=== PATIENT | female | born 1985 | race Caucasian/White ===

== ENCOUNTER 2016-11-11 22:07 | Emergency (ER) | payer BC, OTHER ==
[~2016-11-11] VITALS: Ht 180.3 cm; Wt 130.0 kg
[~2016-11-11 22:07] MED LIST: ACETAMINOPHEN PO; HYDROCODONE PO; IRON PO; LORA-441 PO; ONDANSETRON PO; OXYC-281 PO
[2016-11-11 22:16] VITALS: Ht 180.3 cm; Wt 130.0 kg
--- NOTE | 2016-11-11 22:35 | ERA ---
ER Documentation Chief Complaint Date/Time DATE: 11/11/16 TIME: 22:34 Chief Complaint palaptations since tuesday HPI The patient is a 31-year-old female, presenting to the ER because of palpitations intermittently for 3 days, left sided numbness intermittently for the last week. She was seen at [place] emergency department 3 days ago and discharged. She complains of minimal epigastric discomfort, denies fever, chills, syncope, near syncope, neck pain, chest pain, dyspnea, nausea, vomiting , diarrhea, constipation. She does not smoke, drink. She has a lot of stress in her life Past medical history: Anxiety, anemia Past surgical history: One , left ankle ROS All systems reviewed and are negative except as per history of present illness. Medications Home Meds Active Scripts Ondansetron (Ondansetron Odt) 4 Mg Tab.rapdis, 4 MG PO Q6H Y for NAUSEA AND/OR VOMITING, #10 TAB Prov:TRISTON ERWIN MD 11/12/16 Lorazepam* (Ativan*) 0.5 Mg Tablet, 0.5 MG PO Q8, #10 TAB Prov:ARTURO PAZ 06/30/16 Oxycodone Hcl-Acetaminophen* (Percocet*) 5-325 Mg Tablet, 1 TAB PO TID for PAIN LEVEL 6-10, #12 TAB Prov:JUSTIN HOANG MD 03/24/16 Reported Medications [Hydocod-Acet] No Conflict Check, 1 TAB PO Q12 Y for PAIN 09/10/14 [Iron] No Conflict Check, 1 TAB PO DAILY 09/10/14 [Ondansetron] No Conflict Check, 4 MG PO Y for NAUSEA 09/10/14 Allergies Allergies: Coded Allergies: No Known Allergy (Unverified , 09/10/14) PMhx/Soc History of Surgery: Yes ( x1, gallbladder removed, left ankle surgery) Anesthesia Reaction: No Hx Neurological Disorder: No Hx Respiratory Disorders: No Hx Cardiac Disorders: No Hx Psychiatric Problems: Yes (ANXIETY) Hx Miscellaneous Medical Probl: Yes (ANEMIA) Hx Alcohol Use: Yes (SOCIAL) Hx Substance Use: No Hx Tobacco Use: No (QUIT APRIL 2016) Smoking Status: Former smoker Physical Exam Vitals Vital Signs Date Time Temp Pulse Resp B/P Pulse Ox O2 Delivery O2 Flow Rate FiO2 11/12/16 00:05 98 18 133/74 99 11/11/16 22:55 105 18 132/83 98 11/11/16 22:21 112 18 134/68 99 Nasal Cannula 2.0 11/11/16 22:16 98.4 115 18 119/78 99 Physical Exam Const: No acute distress. Head: Atraumatic. Eyes: Normal Conjunctiva. ENT: Normal External Ears, Nose and Mouth. Neck: Full range of motion. No meningismus. Resp: Clear to auscultation bilaterally. Cardio: Regular but tachycardic Abd: Soft, non distended, normal bowel sounds, non tender. Skin: No petechiae or rashes. Back: No midline or flank tenderness. Ext: No cyanosis, or edema. Neur: Awake and alert. No focal deficit Psych: Normal Mood and Affect. Result Diagram: 11/11/16225711/11/162257 Results 24 hrs Laboratory Tests Test 11/11/16 22:58 11/12/16 00:38 Activated Partial Thromboplast Time 30.9Sec Alanine Aminotransferase (ALT/SGPT) 22IU/L Albumin 3.9g/dl Albumin/Globulin Ratio 1.05 Alkaline Phosphatase 83IU/L Anion Gap 16 Aspartate Amino Transf (AST/SGOT) 20IU/L Basophils # 0.010^3/ul Basophils % 0.4% Blood Morphology Comment Blood Urea Nitrogen 12mg/dl Calcium Level 8.8mg/dl Carbon Dioxide Level 26mmol/L Chloride Level 102mmol/L Creatinine 0.73mg/dl Direct Bilirubin 0.00mg/dl Eosinophils # 0.210^3/ul Eosinophils % 1.9% Globulin 3.70g/dl Glucose Level 104mg/dl Hematocrit 32.6% Hemoglobin 10.9g/dl INR International Normalized Ratio 0.95 Indirect Bilirubin 0.3mg/dl Lipase 74U/L Lymphocytes # 1.910^3/ul Lymphocytes % 17.4% Mean Corpuscular Hemoglobin 27.1pg Mean Corpuscular Hemoglobin Concent 33.4g/dl Mean Corpuscular Volume 81.1fl Mean Platelet Volume 7.9fl Monocytes # 0.710^3/ul Monocytes % 6.1% Neutrophils # 8.210^3/ul Neutrophils % 74.2% Nucleated Red Blood Cells # 0.010^3/ul Nucleated Red Blood Cells % 0.0/100WBC Platelet Count 87530^3/UL Potassium Level 3.8mmol/L Prothrombin Time 12.7Sec Prothrombin Time Ratio 1.0 Red Blood Count 4.0210^6/ul Red Cell Distribution Width 15.4% Sodium Level 140mmol/L Thyroid Stimulating Hormone (TSH) 1.180MIU/L Total Bilirubin 0.3mg/dl Total Protein 7.6g/dl Troponin I < 0.010ng/ml White Blood Count 11.110^3/ul Bedside Urine Blood 1+ Bedside Urine Glucose (UA) Negative Bedside Urine Ketones (LAB) Negative Bedside Urine Leukocyte Esterase (L Negative Bedside Urine Nitrite (LAB) Negative Bedside Urine Protein (LAB) Negative Bedside Urine pH (LAB) 5.5 Current Medications Medications (Trade) Dose Ordered Sig/Beto Route PRN Reason Start Time Stop Time Status Last Admin Dose Admin Sodium Chloride (NS) 1,000 ml @ 1,000 mls/hr Q1H ONCE IV 11/11/16 23:00 11/11/16 23:59 DC 11/11/16 22:55 Procedures/MDM EKG: Read by emergency physician Rate/Rhythm: Normal Sinus Rhythm 96 beats per min QRS, ST, T-waves: No ST elevation, no T wave inversion Impression: Normal EKG [place] [id number] Radiology Main Line: [phone] DIAGNOSTIC IMAGING REPORT Patient: MOLLY DE LA ROSA : 1985 Age: 31 Sex: F [id number] DOS: 11/11/16 2241 Ordering MD: TRISTON ERWIN MD Location: E/R Room/Bed: PROCEDURE: CHEST - 1 VIEW CLINICAL INDICATION: 31-year-old female with chest/abdominal pain. TECHNIQUE: A single frontal AP upright view of the chest was performed portably. The images were reviewed on a PACS workstation. COMPARISON: Chest x-ray June 30, 2016. FINDINGS: The cardiomediastinal silhouette is prominent but without significant interval change. The lung apices are incompletely visualized There is no evidence for an infiltrate. The pulmonary vascularity is within normal limits. There is no evidence for pneumothorax or pneumomediastinum. The osseous structures are intact. IMPRESSION: No evidence for active cardiopulmonary disease. .Franco Yuen MD, MD Date Time Electronically viewed and signed by .Franco Yuen MD, MD on 11/11/2016 23:27 .M/ CC: TRISTON ERWIN MD [place] [address] Radiology Main Line: [phone] DIAGNOSTIC IMAGING REPORT Patient: MOLLY DE LA ROSA : 1985 Age: 31 Sex: F MR #: [id number] DOS: 11/11/16 2241 Ordering MD: TRISTON ERWIN MD Location: E/R Room/Bed: PROCEDURE: CT BRAIN WITHOUT CONTRAST CLINICAL INDICATION: 31-year-old female with headaches and left-sided numbness. TECHNIQUE: The study was performed utilizing a [employer] 64-slice CT scanner. Direct axial sections were obtained from the foramen magnum to the vertex without the use of intravenous contrast material. Sagittal and coronal reformations were obtained. Automated exposure control and iterative reconstruction techniques were utilized for this examination. The images were viewed on a PACS workstation. CTD/vol = 43.9 mGy; Total Exam DLP = 720.2 mGy- cm. COMPARISON: None. FINDINGS: The ventricles have a normal size, shape and position. There is no evidence for mass effect or midline shift. There are no intracranial areas of abnormal attenuation. There is no evidence for acute intra or extra-axial blood. The bony calvarium is intact. The partially visualized paranasal sinuses and mastoid air cells are without significant abnormal soft tissue. IMPRESSION: Unremarkable noncontrast CT scan of the brain. .Franco Yuen MD, MD Date Time Electronically viewed and signed by .Franco Yuen MD, MD on 11/11/2016 23:27 .M/ CC: TRISTON ERWIN MD MEDICAL MAKING DECISION: The patient is a 31-year-old female, presenting with acute left intermittent numbness, acute palpitation of unclear etiology. She was treated with 1 L normal saline for clinical dehydration and Zofran ODT for nausea with good response. The differential diagnoses considered include but are not limited to anxiety attack, panic attack, acute distress, TIA, thyroid disease Departure Diagnosis: Primary Impression: Palpitations Additional Impressions: Left sided numbness Anemia Condition: Good Comments I discussed the findings with the patient. I advised the patient to follow-up with the primary physician in about 1-2 days for referral to neurology, sooner if needed and return if any concern. TRISTON ERWIN MD Nov 11, 2016 22:34
[2016-11-11] MEDS ORDERED: SOD CHLORIDE 0.9% 1,000 ML IV ONE (23:00)
[2016-11-11 23:13] LABS: BASOPHILS % 0.4 % (0.0-2.0); EOSINOPHILS # 0.2 10^3/ul (0.0-0.5); EOSINOPHILS % 1.9 % (0.0-7.0); HEMATOCRIT 32.6 % (37.0-47.0); HEMOGLOBIN 10.9 g/dl (12.0-16.0); LYMPHOCYTES # 1.9 10^3/ul (0.8-2.9); LYMPHOCYTES % 17.4 % (15.0-51.0); MEAN CORPUSCULAR HEMOGLOBIN 27.1 pg (29.0-33.0); MEAN CORPUSCULAR HGB CONC 33.4 g/dl (32.0-37.0); MEAN CORPUSCULAR VOLUME 81.1 fl (82.0-101.0); MEAN PLATELET VOLUME 7.9 fl (7.4-10.4); MONOCYTE # 0.7 10^3/ul (0.3-0.9); MONOCYTES % 6.1 % (0.0-11.0); NEUTROPHIL # 8.2 10^3/ul (1.6-7.5); NEUTROPHILS % 74.2 % (39.0-77.0); PLATELET COUNT 278 10^3/UL (140-440); RED BLOOD COUNT 4.02 10^6/ul (4.20-5.40); RED CELL DISTRIBUTION WIDTH 15.4 % (11.5-14.5); UNCORRECTED WBC 11.1 10^3/ul (4.8-10.8); WHITE BLOOD COUNT 11.1 10^3/ul (4.8-10.8)
[2016-11-11 23:14] LABS: CONDITION 1; LH ANALYZER COMMENTS 1
[2016-11-11 23:20] LABS: INR 0.95; PROTIME 12.7 Sec (12.2-14.2)
[2016-11-11 23:21] LABS: PARTIAL THROMBOPLASTIN TIME 30.9 Sec (25.0-35.0)
[2016-11-11 23:23] LABS: CHLORIDE 102 mmol/L (97-110)
[2016-11-11 23:24] LABS: ALBUMIN 3.9 g/dl (3.3-4.9); POTASSIUM 3.8 mmol/L (3.5-5.1); SODIUM 140 mmol/L (135-144)
[2016-11-11 23:27] LABS: ALANINE AMINOTRANSFERASE 22 IU/L (13-69); ALBUMIN/GLOBULIN RATIO 1.05; ALKALINE PHOSPHATASE 83 IU/L (42-121); ASPARTATE AMINO TRANSFERASE 20 IU/L (15-46); BILIRUBIN,INDIRECT 0.3 mg/dl (0-1.1); BILIRUBIN,TOTAL 0.3 mg/dl (0.2-1.3); BLOOD UREA NITROGEN 12 mg/dl (7-20); CARBON DIOXIDE 26 mmol/L (21-31); CREATININE 0.73 mg/dl (0.44-1.00); GLUCOSE 104 mg/dl (70-220); TOTAL PROTEIN 7.6 g/dl (6.1-8.1)
--- NOTE | 2016-11-11 23:27 | RADRPT ---
PROCEDURE: CT BRAIN WITHOUT CONTRAST CLINICAL INDICATION: 31-year-old female with headaches and left-sided numbness. TECHNIQUE: The study was performed utilizing a [employer] VCT 64-slice CT scanner. Direct axia l sections were obtained from the foramen magnum to the vertex without the use of intravenous contra st material. Sagittal and coronal reformations were obtained. Automated exposure control and iterat mabel reconstruction techniques were utilized for this examination. The images were viewed on a PACS workstation. CTD/vol = 43.9 mGy; Total Exam DLP = 720.2 mGy-cm. COMPARISON: None. FINDINGS: The ventricles have a normal size, shape and position. There is no evidence for mass effect or midl ine shift. There are no intracranial areas of abnormal attenuation. There is no evidence for acute intra or extra-axial blood. The bony calvarium is intact. The partially visualized paranasal sinuse s and mastoid air cells are without significant abnormal soft tissue. IMPRESSION: Unremarkable noncontrast CT scan of the brain. .Franco Yuen MD, Date Time Electronically viewed and signed by .Franco Yuen MD, on 11/11/2016 23:27 .Javier/
[2016-11-11 23:28] LABS: CALCIUM 8.8 mg/dl (8.4-10.2)
--- NOTE | 2016-11-11 23:28 | RADRPT ---
PROCEDURE: CHEST - 1 VIEW CLINICAL INDICATION: 31-year-old female with chest/abdominal pain. TECHNIQUE: A single frontal AP upright view of the chest was performed portably. The images were reviewed on a PACS workstation. COMPARISON: Chest x-ray June 30, 2016. FINDINGS: The cardiomediastinal silhouette is prominent but without significant interval change. The lung api sushma are incompletely visualized There is no evidence for an infiltrate. The pulmonary vascularity i s within normal limits. There is no evidence for pneumothorax or pneumomediastinum. The osseous stru ctures are intact. IMPRESSION: No evidence for active cardiopulmonary disease. .Franco Yuen MD, MD Date Time Electronically viewed and signed by .Franco Yuen MD, on 11/11/2016 23:27 .Juan Francisco
[2016-11-11 23:32] LABS: ANION GAP 16 (8-16)
[2016-11-11 23:49] LABS: TROPONIN-I < 0.010 ng/ml (0.00-0.12)
[2016-11-12 00:05] VITALS: BP 133/74; PULSE 98; RESP 18
[2016-11-12 00:39] LABS: URINE BLOOD (Dip) POC 1+ (NEGATIVE)
[2016-11-12] MEDS ORDERED: ONDA4TAB14 PO (00:42)
== END 2016-11-12 00:51 | disposition home or self-care (01) ==
LOC: E/R 22:07
DX: R00.2 Palpitations (principal); R20.0 Anesthesia of skin; D64.9 Anemia, unspecified; R07.9 Chest pain, unspecified; Z87.891 Personal history of nicotine dependence
CPT/HCPCS: 36415; 70450; 71010; 80053; 81003; 83690; 84443; 84484; 85025; 85610; 85730; 93005; 99285; J7030